=== PATIENT | female | born 1995 | race Caucasian/White ===

== ENCOUNTER 2017-08-24 14:36 | Emergency (ER) | payer OTHER ==
[2017-08-24 14:40] VITALS: BP 118/55; BMI 34.3
[2017-08-24] MEDS ORDERED: NEURONTIN CAP 300 MG PO ONE (14:54)
--- NOTE | 2017-08-24 14:56 | DR.EXTPAIN ---
HPI - Time seen Time seen: 15:06 - PCP Primary Care Physician: JUAN - Complaint/Symptoms Chief Complaint Doctor Comments: the injury to her rt. ankle joint occurred 3 days ago. Chief Complaint:: PT. C/O RIGHT ANKLE PAIN S/P FALL. PT. IS 5 MONTHS , DENIES ABDOMINAL PAIN OR VAGINAL BLEEDING. - Nurses notes reviewed Nurses Notes Review: Yes - Source History Provided: Patient - Mode of arrival Mode of Arrival: Ambulatory - Timing Onset of Chief Complaint: 08/22/17 - Associated signs and symptoms Associated Signs and Symptoms: Swelling PMH - PMH Past Medical History: Yes Past Medical History: Asthma Past Medical History Comment: POD Past Surgical History: Yes Surgical History: Appendectomy, Tonsillectomy, Other - Family History History of Family Medical Conditions: No - Social History Does patient currently use any type of tobacco product: No Have you used tobacco products in the last 12 months: No Type of Tobacco Use: None Does any household member use tobacco: No Alcohol Use: None Do you use any recreational Drugs:: No Lives With: Spouse Lives Where: Home - infectious screening In the last 2 months have you had wt loss of >10#?: NO Have you had fever, night sweats or hemotysis?: No Have you traveled outside the country in the last 6 months?: No Isolation: Standard ROS - Review of Systems Constitutional: No Symptoms Reported Eyes: No Symptoms Reported ENTM: No Symptoms Reported Respiratoy: No Symptoms Reported Cardiovascular: No Symptoms Reported Gastrointestinal/Abdominal: No Symptoms Reported Genitourinary: No Symptoms Reported Neurological: No Symptoms Reported Musculoskeletal: Joint Pain (rt. ankle pain) Integumentary: No Symptoms Reported Hematologic/Lymphatic: No Symptoms Reported Endocrine: No Symptoms Reported Psychiatric: No Symptoms Reported All Other Systems: Reviewed and Negative PE - Vital Signs Vitals: Temperature 98.1 F Pulse Rate 80 Respiratory Rate 17 Blood Pressure 118/55 O2 Sat by Pulse Oximetry 100 - General Limitations: No Limitations General Appearance: Alert, In No Apparent Distress - Head Head Exam: Normal Inspection - Eyes Eye exam: Normal Appearance - ENT ENT Exam: Normal Exam - Neck Neck Exam: Normal Inspection - Chest Chest Inspection: Normal Inspection - Respiratory Respiratory Exam: Normal Lung Sounds Bilat - Cardiovascular Cardiovascular Exam: Regular Rate, Normal Rhythm, +S1, +S2 - Abdominal Exam Abdominal Exam: Normal Inspection, Normal Bowel Sounds, Soft - Extremities Extremities Exam: Normal Inspection, Full ROM, Tenderness (over rt. lateral malleolus and with eversion of this joint.) - Back Back Exam: Normal Inspection - Neurological Neurological Exam: Alert, Oriented X3, CN II-XII Intact - Psychiatric Psychiatric Exam: Normal Affect, Normal Mood - Skin Skin Exam: Warm, Dry, Intact, Normal Color - Diagnosis Discharge Problem: Right ankle sprain - Discharge Plan Disposition: 01 HOME, SELF-CARE Condition: Stable - Follow ups/Referrals Follow ups/Referrals: NFD,None [Primary Care Provider] - 3 days - Instructions Instructions: Ankle Sprain, [id number]
== END 2017-08-24 15:27 | disposition home or self-care (01) ==
LOC: ER 14:51
PROC: 2W3LX1Z Immobilization of Right Lower Extremity using Splint (ICD-10-PCS; principal; 2017-08-24)
DX: S93.401A Sprain of unspecified ligament of right ankle, initial encounter (principal); W19.XXXA Unspecified fall, initial encounter; Y92.9 Unspecified place or not applicable
CPT/HCPCS: 29540; 99281; 99283; 99284